=== PATIENT | male | born 1940 | race Hispanic/Latino ===

== ENCOUNTER 2021-04-22 17:33 | Inpatient (IN) | payer OTHER ==
[~2021-04-22] VITALS: Ht 167.6 cm; Wt 113.4 kg
[2021-04-22 18:17] VITALS: BP 125/80
[2021-04-22 20:00] VITALS: BP 131/81
[2021-04-22 21:30] LABS: BASOPHILS % (AUTO) 0.6 % (0.0-5.0); EOSINOPHILS % (AUTO) 7.1 % (0.0-8.0); HEMATOCRIT 26.4 % (42-54); LYMPHOCYTES % (AUTO) 35.3 % (21.0-51.0); MEAN CORPUSCULAR HEMOGLOBIN 38.6 pg (27.0-33.0); MEAN CORPUSCULAR HGB CONC 33.3 g/dL (32.0-36.0); MEAN CORPUSCULAR VOLUME 115.8 fL (79-99); MONOCYTES % (AUTO) 19.6 % (3.0-13.0); NEUTROPHILS % (AUTO) 36.8 % (40.0-77.0); PLATELET COUNT (AUTO) 59 K/uL (130-400); RED BLOOD CELL COUNT(AUTO) 2.28 MIL/uL (4.50-6.20); RED CELL DISTRIBUTION WIDTH 17.4 % (11.0-15.5); WHITE BLOOD COUNT (AUTO) 3.3 K/uL (4.8-10.8)
[2021-04-22] MEDS ORDERED: MORPHINE 2 MG SYG IV PRN (21:30)
[2021-04-22] MEDS ORDERED: ONDANSETRON 4MG INJ IV PRN (21:30)
[2021-04-22] MEDS: LACTATED RINGERS 1000ML 1,000 ML IV SCH (21:30)
[2021-04-22 21:43] LABS: INR 1.35 (0.85-1.15); PROTHROMBIN TIME 14.3 SEC (9.6-11.6)
[2021-04-22 21:45] LABS: PARTIAL THROMBOPLASTIN TIME 46.1 SEC (26.3-35.5)
[2021-04-22 21:49] LABS: ALBUMIN 1.7 g/dL (3.5-5.0); BILIRUBIN,TOTAL 1.3 mg/dL (0.2-1.0); CREATININE 0.8 mg/dL (0.5-1.5); POTASSIUM 3.8 mmol/L (3.5-5.1); TOTAL PROTEIN, SERUM 6.5 g/dL (6.0-8.3)
[2021-04-23] VITALS (7 sets, daily range): BP systolic 91–124; BP diastolic 59–78
[2021-04-23 05:31] LABS: BASOPHILS % (AUTO) 0.6 % (0.0-5.0); EOSINOPHILS % (AUTO) 6.2 % (0.0-8.0); HEMATOCRIT 26.1 % (42-54); LYMPHOCYTES % (AUTO) 34.6 % (21.0-51.0); MEAN CORPUSCULAR HEMOGLOBIN 37.8 pg (27.0-33.0); MEAN CORPUSCULAR HGB CONC 33.7 g/dL (32.0-36.0); MONOCYTES % (AUTO) 19.6 % (3.0-13.0); NEUTROPHILS % (AUTO) 38.7 % (40.0-77.0); PLATELET COUNT (AUTO) 58 K/uL (130-400); RED BLOOD CELL COUNT(AUTO) 2.33 MIL/uL (4.50-6.20); RED CELL DISTRIBUTION WIDTH 17.2 % (11.0-15.5); WHITE BLOOD COUNT (AUTO) 3.4 K/uL (4.8-10.8)
[2021-04-23] MEDS ORDERED: NITR100C PO (05:34)
[2021-04-23] MEDS ORDERED: OMEP40CA21 PO (05:34)
[2021-04-23] MEDS ORDERED: FERR-72 PO (05:34)
[2021-04-23] MEDS ORDERED: TAMS-1 PO (05:34)
[2021-04-23 05:38] LABS: ALBUMIN 1.7 g/dL (3.5-5.0); BILIRUBIN,TOTAL 1.5 mg/dL (0.2-1.0); CREATININE 0.8 mg/dL (0.5-1.5); MAGNESIUM 1.7 mg/dL (1.80-2.40); PHOSPHORUS 3.5 mg/dL (2.5-4.9); POTASSIUM 3.7 mmol/L (3.5-5.1); TOTAL PROTEIN, SERUM 6.2 g/dL (6.0-8.3)
[2021-04-23] MEDS: TAMSULOSIN HCL 0.4 MG CAP.ER.24H PO SCH (09:29)
[2021-04-23] MEDS: FAMOTIDINE 20MG VIAL IV SCH (09:29)
[2021-04-23] MEDS ORDERED: MAGNESIUM 2GM PREMIX 50ML 50 ML IV PRN ×2 (11:30→13:30)
[2021-04-23] MEDS: LACTATED RINGERS 1000ML 1,000 ML IV SCH (16:49)
[2021-04-24 03:47] LABS: BASOPHILS % (AUTO) 0.7 % (0.0-5.0); EOSINOPHILS % (AUTO) 9.2 % (0.0-8.0); HEMATOCRIT 25.7 % (42-54); LYMPHOCYTES % (AUTO) 29.8 % (21.0-51.0); MEAN CORPUSCULAR HGB CONC 33.9 g/dL (32.0-36.0); MEAN CORPUSCULAR VOLUME 112.2 fL (79-99); MONOCYTES % (AUTO) 22.4 % (3.0-13.0); NEUTROPHILS % (AUTO) 37.6 % (40.0-77.0); PLATELET COUNT (AUTO) 57 K/uL (130-400); RED BLOOD CELL COUNT(AUTO) 2.29 MIL/uL (4.50-6.20); RED CELL DISTRIBUTION WIDTH 16.8 % (11.0-15.5)
[2021-04-24 04:10] VITALS: BP 110/62
[2021-04-24 04:17] LABS: BASOPHILS % (MANUAL) 1 % (0-2); EOSINOPHILS % (MANUAL) 16 % (1-6); LYMPHOCYTES % (MANUAL) 18 % (22-44); MAN.DIFF COMMENT-IMPRESSION MANUAL DIFFERENTIAL; MONOCYTES % (MANUAL) 4 % (2-9); REACTIVE LYMPHOCYTES 2 % (0-0); SEGMENTED NEUTROPHILS % 59 % (40-70)
[2021-04-24 04:25] LABS: PLATELET MORPHOLOGY COMMENT DECREASED
[2021-04-24 07:25] VITALS: BP 124/79
[2021-04-24] MEDS: FAMOTIDINE 20MG VIAL IV SCH (09:00)
[2021-04-24] MEDS: TAMSULOSIN HCL 0.4 MG CAP.ER.24H PO SCH (09:00)
[2021-04-24] MEDS ORDERED: LACTATED RINGERS 1000ML 1,000 ML IV SCH (10:00)
[2021-04-24 11:34] VITALS: BP 117/63
[2021-04-24] MEDS: LACTATED RINGERS 1000ML 1,000 ML IV SCH ×2 (11:57→12:11)
[2021-04-24 15:44] VITALS: BP 100/62
[2021-04-24] MEDS ORDERED: CEFTRIAXONE 1G VIAL IVP SCH (19:00)
[2021-04-24 20:24] VITALS: BP 105/49
[2021-04-24 23:54] VITALS: BP 125/75
[2021-04-25 03:48] VITALS: BP 114/54
[2021-04-25 05:19] LABS: BASOPHILS % (AUTO) 0.5 % (0.0-5.0); EOSINOPHILS % (AUTO) 7.2 % (0.0-8.0); HEMATOCRIT 26.1 % (42-54); LYMPHOCYTES % (AUTO) 35.7 % (21.0-51.0); MEAN CORPUSCULAR HEMOGLOBIN 37.4 pg (27.0-33.0); MEAN CORPUSCULAR VOLUME 113.5 fL (79-99); MONOCYTES % (AUTO) 19.6 % (3.0-13.0); NEUTROPHILS % (AUTO) 36.7 % (40.0-77.0); PLATELET COUNT (AUTO) 63 K/uL (130-400); RED CELL DISTRIBUTION WIDTH 17.2 % (11.0-15.5); WHITE BLOOD COUNT (AUTO) 3.7 K/uL (4.8-10.8)
[2021-04-25 05:34] LABS: CREATININE 0.8 mg/dL (0.5-1.5); MAGNESIUM 1.5 mg/dL (1.80-2.40); POTASSIUM 3.5 mmol/L (3.5-5.1)
[2021-04-25] MEDS ORDERED: POTASSIUM CHLORIDE 20MEQ/100ML 100 ML IV PRN (07:30)
[2021-04-25] MEDS ORDERED: KCL 20 MEQ ERTAB PO PRN (07:30)
[2021-04-25 07:45] VITALS: BP 97/59
[2021-04-25] MEDS: FAMOTIDINE 20MG VIAL IV SCH (09:18)
[2021-04-25] MEDS: TAMSULOSIN HCL 0.4 MG CAP.ER.24H PO SCH (09:18)
[2021-04-25] MEDS: POTASSIUM CHLORIDE 10% ELIXIR 20 MEQ/15 ML UDCUP PO PRN ×2 (09:20→13:28)
[2021-04-25 11:32] VITALS: BP 119/69
[2021-04-25] MEDS ORDERED: CYANOCOBALAMIN (VITAMIN B-12) 1,000 MCG TABLET PO SCH (14:30)
[2021-04-25] MEDS ORDERED: FOLIC ACID 1 MG TABLET PO SCH (14:30)
[2021-04-25 15:26] LABS: % IRON SATURATION 125.8 % (30-44)
[2021-04-25 15:34] VITALS: BP 108/57
[2021-04-25] MEDS: CEFTRIAXONE 1G VIAL IVP SCH (18:25)
[2021-04-25 19:40] VITALS: BP 117/67
[2021-04-25 23:40] VITALS: BP 99/53
[2021-04-26 04:26] VITALS: BP 117/65
[2021-04-26 04:29] LABS: BASOPHILS % (AUTO) 0.5 % (0.0-5.0); EOSINOPHILS % (AUTO) 7.4 % (0.0-8.0); HEMATOCRIT 26.7 % (42-54); LYMPHOCYTES % (AUTO) 31.9 % (21.0-51.0); MEAN CORPUSCULAR HEMOGLOBIN 37.8 pg (27.0-33.0); MEAN CORPUSCULAR HGB CONC 33.7 g/dL (32.0-36.0); MEAN CORPUSCULAR VOLUME 112.2 fL (79-99); MONOCYTES % (AUTO) 20.4 % (3.0-13.0); NEUTROPHILS % (AUTO) 39.1 % (40.0-77.0); PLATELET COUNT (AUTO) 60 K/uL (130-400); RED BLOOD CELL COUNT(AUTO) 2.38 MIL/uL (4.50-6.20); RED CELL DISTRIBUTION WIDTH 17.2 % (11.0-15.5); WHITE BLOOD COUNT (AUTO) 4.2 K/uL (4.8-10.8)
[2021-04-26 04:49] LABS: ALBUMIN 1.6 g/dL (3.5-5.0); BILIRUBIN,TOTAL 1.3 mg/dL (0.2-1.0); CREATININE 0.9 mg/dL (0.5-1.5); MAGNESIUM 1.8 mg/dL (1.80-2.40); POTASSIUM 3.8 mmol/L (3.5-5.1)
[2021-04-26] MEDS: MAGNESIUM 2GM PREMIX 50ML 50 ML IV SCH ×2 (05:41→20:10)
[2021-04-26 07:16] LABS: HEPATITIS A ANTIBODY IGM Negative (Negative); HEPATITIS B CORE IGM Negative (Negative); HEPATITIS Bs ANTIGEN SCREEN P Negative (Negative)
[2021-04-26 07:40] VITALS: BP 105/60
[2021-04-26] MEDS: TAMSULOSIN HCL 0.4 MG CAP.ER.24H PO SCH (09:23)
[2021-04-26] MEDS: FAMOTIDINE 20MG VIAL IV SCH (09:23)
[2021-04-26 11:13] VITALS: BP 113/70
[2021-04-26] MEDS: POTASSIUM CHLORIDE 10% ELIXIR 20 MEQ/15 ML UDCUP PO PRN ×2 (14:32→20:11)
[2021-04-26 15:36] VITALS: BP 109/66
[2021-04-26] MEDS: CEFTRIAXONE 1G VIAL IVP SCH (18:09)
[2021-04-26 19:30] VITALS: BP 101/54
[2021-04-26] MEDS: METOPROLOL TARTRATE 25 MG TAB PO SCH (20:10)
[2021-04-26] MEDS: KETOCONAZOLE 15 GM CREAM.GM. TP SCH (22:30)
[2021-04-26 23:47] VITALS: BP 109/67
[2021-04-27 03:40] VITALS: BP 103/51
[2021-04-27 04:32] LABS: BASOPHILS % (AUTO) 0.5 % (0.0-5.0); EOSINOPHILS % (AUTO) 10.2 % (0.0-8.0); HEMATOCRIT 26.9 % (42-54); LYMPHOCYTES % (AUTO) 28.7 % (21.0-51.0); MEAN CORPUSCULAR HEMOGLOBIN 38.5 pg (27.0-33.0); MEAN CORPUSCULAR HGB CONC 33.5 g/dL (32.0-36.0); NEUTROPHILS % (AUTO) 41.1 % (40.0-77.0); PLATELET COUNT (AUTO) 58 K/uL (130-400); RED BLOOD CELL COUNT(AUTO) 2.34 MIL/uL (4.50-6.20); WHITE BLOOD COUNT (AUTO) 4.1 K/uL (4.8-10.8)
[2021-04-27 05:11] LABS: CREATININE 0.9 mg/dL (0.5-1.5); MAGNESIUM 2.2 mg/dL (1.80-2.40); POTASSIUM 4.2 mmol/L (3.5-5.1)
[2021-04-27 08:00] VITALS: BP 101/58
[2021-04-27] MEDS: TAMSULOSIN HCL 0.4 MG CAP.ER.24H PO SCH (09:55)
[2021-04-27] MEDS: METOPROLOL TARTRATE 25 MG TAB PO SCH ×2 (09:55→20:26)
[2021-04-27] MEDS: KETOCONAZOLE 15 GM CREAM.GM. TP SCH ×2 (09:56→22:07)
[2021-04-27] MEDS: FAMOTIDINE 20MG VIAL IV SCH (09:56)
[2021-04-27] MEDS: CEPHALEXIN 500 MG CAPSULE PO SCH ×2 (11:30→22:08)
[2021-04-27 12:00] VITALS: BP 102/59
[2021-04-27 16:00] VITALS: BP 90/60
[2021-04-27 20:00] VITALS: BP 106/57
[2021-04-28] VITALS: BP 109/64
[2021-04-28 04:05] VITALS: BP 99/54
[2021-04-28 05:38] LABS: BASOPHILS % (AUTO) 0.6 % (0.0-5.0); HEMATOCRIT 28.8 % (42-54); LYMPHOCYTES % (AUTO) 32.6 % (21.0-51.0); MEAN CORPUSCULAR HEMOGLOBIN 38.4 pg (27.0-33.0); MEAN CORPUSCULAR HGB CONC 33.3 g/dL (32.0-36.0); MEAN CORPUSCULAR VOLUME 115.2 fL (79-99); NEUTROPHILS % (AUTO) 37.2 % (40.0-77.0); PLATELET COUNT (AUTO) 71 K/uL (130-400); RED CELL DISTRIBUTION WIDTH 16.8 % (11.0-15.5)
[2021-04-28 05:45] LABS: CREATININE 0.9 mg/dL (0.5-1.5); POTASSIUM 4.6 mmol/L (3.5-5.1)
[2021-04-28] MEDS: FAMOTIDINE 20MG VIAL IV SCH (07:51)
[2021-04-28] MEDS: TAMSULOSIN HCL 0.4 MG CAP.ER.24H PO SCH (07:52)
[2021-04-28] MEDS: METOPROLOL TARTRATE 25 MG TAB PO SCH ×2 (07:52→21:00)
[2021-04-28] MEDS: KETOCONAZOLE 15 GM CREAM.GM. TP SCH ×2 (07:52→21:57)
[2021-04-28 08:00] VITALS: BP 110/62
[2021-04-28] MEDS: CEPHALEXIN 500 MG CAPSULE PO SCH ×2 (11:17→23:33)
[2021-04-28 12:20] VITALS: BP 112/69
[2021-04-28 16:00] VITALS: BP 100/59
[2021-04-28 20:00] VITALS: BP 98/50
[2021-04-29] VITALS: BP 94/61
[2021-04-29 04:00] VITALS: BP 94/55
[2021-04-29 06:28] LABS: BASOPHILS % (AUTO) 0.6 % (0.0-5.0); EOSINOPHILS % (AUTO) 9.2 % (0.0-8.0); HEMATOCRIT 27.4 % (42-54); LYMPHOCYTES % (AUTO) 32.9 % (21.0-51.0); MEAN CORPUSCULAR HEMOGLOBIN 37.6 pg (27.0-33.0); MEAN CORPUSCULAR HGB CONC 33.2 g/dL (32.0-36.0); MEAN CORPUSCULAR VOLUME 113.2 fL (79-99); MONOCYTES % (AUTO) 17.7 % (3.0-13.0); NEUTROPHILS % (AUTO) 39.2 % (40.0-77.0); PLATELET COUNT (AUTO) 62 K/uL (130-400); RED BLOOD CELL COUNT(AUTO) 2.42 MIL/uL (4.50-6.20); RED CELL DISTRIBUTION WIDTH 16.9 % (11.0-15.5)
[2021-04-29 06:48] LABS: CREATININE 0.9 mg/dL (0.5-1.5); POTASSIUM 3.9 mmol/L (3.5-5.1)
[2021-04-29] MEDS: TAMSULOSIN HCL 0.4 MG CAP.ER.24H PO SCH (09:34)
[2021-04-29] MEDS: METOPROLOL TARTRATE 25 MG TAB PO SCH (09:34)
[2021-04-29] MEDS: FAMOTIDINE 20MG VIAL IV SCH (09:35)
[2021-04-29] MEDS: KETOCONAZOLE 15 GM CREAM.GM. TP SCH (09:43)
[2021-04-29] MEDS ORDERED: LACTULOSE 20 GM/30 ML UDCUP PO PRN (14:30)
[2021-04-30] MEDS ORDERED: PANTOPRAZOLE 40 MG TAB DR PO SCH (09:00)
== END 2021-04-29 19:15 | DRG 432 ==
LOC: EDH 17:33 → 3DH 17:34 → 2AH 04-23 12:28 → 2BH 04-28 17:05
PROVIDERS: ADMIT Family Medicine; ATTEND Family Medicine
DX: K74.60 Unspecified cirrhosis of liver (principal); U07.1 COVID-19; J12.82 Pneumonia due to coronavirus disease 2019; J98.51 Mediastinitis; D61.818 Other pancytopenia; N13.6 Pyonephrosis; I47.2 Ventricular tachycardia; K76.6 Portal hypertension; J47.0 Bronchiectasis with acute lower respiratory infection; N20.2 Calculus of kidney with calculus of ureter; D64.9 Anemia, unspecified; N40.0 Benign prostatic hyperplasia without lower urinary tract symptoms; I10 Essential (primary) hypertension; K75.9 Inflammatory liver disease, unspecified; N21.1 Calculus in urethra; R31.0 Gross hematuria; R32 Unspecified urinary incontinence; J84.10 Pulmonary fibrosis, unspecified
CPT/HCPCS: 36415; 70450; 71045; 71250; 74176; 76705; 76770; 80048; 80053; 80074; 82330; 82378; 82948; 83540; 83550; 83735; 84100; 84153; 84165; 84439; 84443; 85025; 85610; 85730; 86850; 86900; 86901; 87635; 93005; 93306; 93356; 97039; G0378; J0696; J3475; J3480; J3490; J7120